=== PATIENT | female | born 1985 | race Caucasian/White ===

== ENCOUNTER 2023-03-18 06:55 | Day surgery (SDC) | payer OTHER ==
[2023-03-18] VITALS (273 sets, daily range): BP systolic 83–175; BP diastolic 25–119
[~2023-03-18] VITALS: Ht 152.4 cm; Wt 58.1 kg
[2023-03-18 07:37] LABS: BASO% 0.4 % (0-3); EOS% 2.7 % (0-8); HEMATOCRIT 37.7 % (37.0-47.0); HEMOGLOBIN 12.7 g/dl (12.0-16.0); IMMATURE GRANULOCYTES 0.4 % (0.0-5.0); LYMPH% 30.5 % (15-41); MEAN CELL VOLUME 89.5 fL CALC (80.0-100.0); MEAN CORPUSCULAR HGB 30.2 pG CALC (26.0-32.0); MEAN CORPUSCULAR HGB CONC 33.7 g/dL CAL (32.0-36.0); MONO% 8.3 % (2-13); NEUT# 2.99 thou/uL (2.00-7.15); NEUT% 57.7 % (42-76); RED BLOOD COUNT 4.21 mill/uL (4.20-5.60); RED CELL DISTRI WIDTH 12.9 % (11.5-15.5)
[2023-03-18 07:52] LABS: ALBUMIN 4.2 g/dL (3.2-5.0); ALKALINE PHOSPHATASE 51 u/l (38-126); ANION GAP 12 (6-22 (CALC)); BILIRUBIN, TOTAL 0.5 mg/dL (0.02-1.3); BUN 11 mg/dL (7-17); BUN/CREATININE RATIO 12 (12-20 (CALC)); CARBON DIOXIDE 26 mmol/l (22-30); CHLORIDE 104 mmol/l (95-108); CREATININE 0.9 mg/dL (0.5-1.0); GFR FOR AFR.AMER. > 60 ML/MIN (>=60 (CALC)); GFR OTHER RACES > 60 ML/MIN (>=60 (CALC)); SGOT/AST 28 u/l (14-36); SODIUM 138 mmol/l (137-146); TOTAL PROTEIN 6.9 g/dL (6.3-8.2)
[2023-03-18] MEDS ORDERED: KLONOPIN0.5 MG PO (08:31)
[2023-03-18] MEDS ORDERED: NALTREXONE50 MG PO (13:48)
[2023-03-18] MEDS ORDERED: CLONIDINE0.1 MG PO (13:49)
[2023-03-18] MEDS ORDERED: KLONOPIN2 MG PO (13:50)
[2023-03-19 02:57] VITALS: BP 125/68
[2023-03-19 03:18] VITALS: BP 115/59
[2023-03-19 03:20] VITALS: BP 108/65
[2023-03-19 04:36] LABS: BASO% 0.1 % (0-3); HEMOGLOBIN 12.5 g/dl (12.0-16.0); IMMATURE GRANULOCYTES 0.3 % (0.0-5.0); LYMPH% 11.6 % (15-41); MEAN CELL VOLUME 86.5 fL CALC (80.0-100.0); MEAN CORPUSCULAR HGB CONC 34.7 g/dL CAL (32.0-36.0); MONO% 1.5 % (2-13); NEUT# 6.33 thou/uL (2.00-7.15); NEUT% 86.5 % (42-76); RED BLOOD COUNT 4.16 mill/uL (4.20-5.60); RED CELL DISTRI WIDTH 12.6 % (11.5-15.5)
[2023-03-19 04:47] LABS: ALBUMIN 3.7 g/dL (3.2-5.0); ALKALINE PHOSPHATASE 56 u/l (38-126); ANION GAP 13 (6-22 (CALC)); BILIRUBIN, TOTAL 0.6 mg/dL (0.02-1.3); BUN 9 mg/dL (7-17); BUN/CREATININE RATIO 11 (12-20 (CALC)); CARBON DIOXIDE 22 mmol/l (22-30); CHLORIDE 107 mmol/l (95-108); CREATININE 0.8 mg/dL (0.5-1.0); GFR FOR AFR.AMER. > 60 ML/MIN (>=60 (CALC)); GFR OTHER RACES > 60 ML/MIN (>=60 (CALC)); MAGNESIUM 2.4 mg/dL (1.6-2.3); POTASSIUM 4.1 mmol/l (3.5-5.1); SGOT/AST 34 u/l (14-36); SODIUM 138 mmol/l (137-146); TOTAL PROTEIN 6.5 g/dL (6.3-8.2)
[2023-03-19 07:33] VITALS: BP 115/58
[2023-03-19 09:43] VITALS: BP 115/58
== END 2023-03-19 17:21 | disposition home or self-care (01) | DRG 897 ==
LOC: MS2 06:55 → ANR 06:55 → MS2 03-19 17:21 → ANR 03-19 17:21
PROVIDERS: ATTEND Anesthesiology
DX: F11.20 Opioid dependence, uncomplicated (principal)
CPT/HCPCS: J0131; J2354; J3475